=== PATIENT | female | born 1945 ===

== ENCOUNTER 2018-01-09 10:48 | Emergency (ER) | payer MEDICARE ==
[2018-01-09 11:01] VITALS: BMI 28.0
[2018-01-09 11:03] VITALS: TEMP 98
--- NOTE | 2018-01-09 12:04 | C.PDOC ---
History Of Present Illness Patient is a 72 y/o female who presents to the ED with her with a complaint of left upper quadrant pain since last night. Patient is currently asymptomatic in ED. Patient notes abdominal bloating. Per , patient has a Hx of dementia and received an unremarkable MRI of abdomen with or without contrast last month by Dr. Hall. No other physical complaints at this time. Time Seen by Provider: 01/09/18 11:37 Chief Complaint (Nursing): Abdominal Pain History Per: Patient, Family () History/Exam Limitations: no limitations Onset/Duration Of Symptoms: Hrs (last night) Current Symptoms Are (Timing): Still Present Location Of Pain/Discomfort: LUQ Associated Symptoms: Other (abdominal bloating) Recent travel outside of the [place]: No Past Medical History Reviewed: Historical Data, Nursing Documentation, Vital Signs Vital Signs: Last Vital Signs Temp 98.0 F 01/09/18 11:01 Pulse 71 01/09/18 11:01 Resp 17 01/09/18 11:01 BP 157/93 H 01/09/18 11:01 Pulse Ox 98 01/09/18 12:34 - Medical History PMH: Arthritis (KNEES), Dementia, Gall Bladder Disease, HTN Denies: Chronic Kidney Disease Surgical History: Appendectomy, Cholecystectomy, Tonsillectomy Family History: States: No Known Family Hx - Social History Hx Tobacco Use: No Hx Alcohol Use: No Hx Substance Use: No - Immunization History Hx Tetanus Toxoid Vaccination: No Hx Influenza Vaccination: No Hx Pneumococcal Vaccination: No Review Of Systems Gastrointestinal: Positive for: Other (left upper quadrant pain) Physical Exam - Physical Exam Appears: No Acute Distress, Other (bahraini-speaking and circumlocutious) Skin: Normal Color, Warm, Dry Head: Atraumatic, Normacephalic Oral Mucosa: Moist Chest: Symmetrical Cardiovascular: Rhythm Regular, No Murmur Respiratory: Normal Breath Sounds, No Rales, No Rhonchi, No Wheezing Gastrointestinal/Abdominal: No Tenderness, Distention (slightly distended), Other (obese; dull to percussion to right abdomen, tympanic to left abdomen) Neurological/Psych: Oriented x3, Normal Speech, Normal Cognition ED Course And Treatment - Laboratory Results Result Diagrams: 01/09/18 12:01 01/09/18 12:01 Lab Interpretation: Normal (ua neg.) O2 Sat by Pulse Oximetry: 98 - Radiology CXR: Interpreted by Me CXR Interpretation: Yes: No Acute Disease - Other Rad abd x 2 X-Ray: Interpreted by Me, Read By Radiologist (+FOS) Obtructive series X-Ray: Interpreted by Me Interpretation: IMPRESSION: Mild cardiomegaly. Moderate constipation. Cholecystectomy clips. Reevaluation Time: 12:32 Reassessment Condition: Improved Medical Decision Making Medical Decision Making: Blood work, obstructive series, and UA ordered. constipation mild elev lft's s/p GB normal MRI abd/pelvis last month argues against severe pathology with benign presentation Disposition Doctor Will See Patient In The: Office Counseled Patient/Family Regarding: Studies Performed, Diagnosis - Disposition Disposition: HOME/ ROUTINE Disposition Time: 12:33 Condition: GOOD Forms: [facility] (Thai) - Clinical Impression Clinical Impression: Colicky LUQ abdominal pain - Scribe Statement The provider has reviewed the documentation as recorded by the Scribe Yulissa Lawton All medical record entries made by the Scribe were at my direction and personally dictated by me. I have reviewed the chart and agree that the record accurately reflects my personal performance of the history, physical exam, medical decision making, and the department course for this patient. I have also personally directed, reviewed, and agree with the discharge instructions and disposition.
[2018-01-09 12:06] LABS: BASO # 0.1 K/uL (0.0-0.2); BASO % 1.2 % (0.0-2.0); EOS # 0.3 K/uL (0.0-0.7); EOS % 5.7 % (0.0-4.0); HEMOGLOBIN 16.2 g/dL (11.0-16.0); LYMPH % 33.8 % (20.0-40.0); MEAN CELL VOLUME 86.4 fL (81.0-99.0); MEAN CORPUSCULAR HGB CONC 34.8 g/dL (33.0-37.0); MEAN PLATELET VOLUME 8.7 fL (7.2-11.7); MONO # 0.4 K/uL (0.0-0.8); MONO % 7.2 % (0.0-10.0); NEUT # 3.1 K/uL (1.8-7.0); NEUT % 52.1 % (50.0-75.0); NRBC % 0.1 % (0.0-2.0); RBC 5.4 Mil/uL (3.80-5.20); RED CELL DISTRIBUTION WIDTH 13.1 % (11.5-14.5)
[2018-01-09 12:19] LABS: ALB/GLOB RATIO 1.2 (1.0-2.1); ALBUMIN 3.9 g/dL (3.5-5.0); ALT/SGPT 60 U/L (9-52); AST/SGOT 48 U/L (14-36); BLOOD UREA NITROGEN 16 mg/dL (7-17); CALCIUM 8.7 mg/dl (8.6-10.4); GFR AFRICAN-AMERICAN > 60; GFR NON-AFRICAN AMERICAN > 60; LIPASE 40 U/L (23-300)
--- NOTE | 2018-01-09 12:21 | RAD ---
PROCEDURE: Radiographs of the chest and abdomen (obstructive series) HISTORY: abd pain COMPARISON: None. TECHNIQUE: AP radiograph of the chest, with upright and supine radiographs of the abdomen. FINDINGS: CHEST: Mild cardiomegaly. Prominent position markings may be chronic. No focal consolidation, significant pleural effusion, or definite pneumothorax identified. ABDOMEN AND PELVIS: Nonobstructive bowel gas pattern. No definite free air. Moderate constipation. Pelvic calcifications, likely phleboliths. Cholecystectomy clips. Mild degenerative changes. IMPRESSION: Mild cardiomegaly. Moderate constipation. Cholecystectomy clips.
[2018-01-09 12:24] LABS: SQUAMOUS EPITHIAL 4 /hpf (0-5); URINE BACTERIA MOD (<OCC); URINE BILIRUBIN NEGATIVE (NEGATIVE); URINE BLOOD NEGATIVE (NEGATIVE); URINE CLARITY Hazy (Clear); URINE COLOR Yellow (YELLOW); URINE GLUCOSE (UA) NORMAL (Normal); URINE LEUKOCYTE ESTERASE 1+ Leu/uL (Negative); URINE PROTEIN NEGATIVE (NEGATIVE); URINE UROBILINOGEN NORMAL mg/dL (0.2-1.0)
[2018-01-09 12:47] VITALS: BP 146/84; PULSE 66; RESP 19; O2SAT 96
== END 2018-01-09 12:48 | disposition home or self-care (01) ==
LOC: C.ER 10:48
DX: R10.12 Left upper quadrant pain (principal); R10.84 Generalized abdominal pain; I10 Essential (primary) hypertension

== ENCOUNTER 2018-10-15 11:04 | Emergency (ER) | payer MEDICARE ==
[2018-10-15 11:09] VITALS: BMI 28.7
--- NOTE | 2018-10-15 11:54 | C.PDOC ---
History Of Present Illness 73 y/o female presents to the ED complaining of pain to the RUQ and right flank for 2 days. Pain is described as intermittent, and most prominent in the RUQ area. States pain feels like its shooting to my back. No associated nausea, vomiting, fever, chills, or diarrhea. Pain worsens with movement. She denies pain at present. Of note patient is s/p appendectomy, cholecystectomy, and hysterectomy. Patient had negative MRI abdomen in Dec 2017. Time Seen by Provider: 10/15/18 11:51 Chief Complaint (Nursing): Abdominal Pain History Per: Patient History/Exam Limitations: no limitations Onset/Duration Of Symptoms: Intermittent Episodes Current Symptoms Are (Timing): Gone Location Of Pain/Discomfort: RUQ Radiation Of Pain To:: Flank Quality Of Discomfort: "Pain" Exacerbating Factors: Movement Past Medical History Reviewed: Historical Data, Nursing Documentation, Vital Signs Vital Signs: Last Vital Signs Temp 98.5 F 10/15/18 11:08 Pulse 76 10/15/18 11:08 Resp 18 10/15/18 11:08 BP 132/80 10/15/18 11:08 Pulse Ox 98 10/15/18 11:08 - Medical History PMH: Arthritis (KNEES), Dementia, Gall Bladder Disease, HTN Denies: Chronic Kidney Disease Surgical History: Appendectomy, Cholecystectomy, Tonsillectomy Other Surgeries: Hysterectomy Family History: States: Unknown Family Hx - Social History Hx Tobacco Use: No Hx Alcohol Use: No Hx Substance Use: No - Immunization History Hx Tetanus Toxoid Vaccination: No Hx Influenza Vaccination: No Hx Pneumococcal Vaccination: No Review Of Systems Except As Marked, All Systems Reviewed And Found Negative. Constitutional: Negative for: Fever, Chills Cardiovascular: Negative for: Chest Pain Respiratory: Negative for: Shortness of Breath Gastrointestinal: Positive for: Abdominal Pain (RUQ). Negative for: Nausea, Vomiting, Diarrhea Musculoskeletal: Positive for: Other (Right flank pain) Neurological: Negative for: Weakness, Numbness Physical Exam - Physical Exam Appears: Non-toxic, No Acute Distress Skin: Normal Color, Warm, Dry Head: Atraumatic, Normacephalic Eye(s): bilateral: Normal Inspection, PERRL, EOMI Oral Mucosa: Moist Neck: Normal ROM Chest: Symmetrical Cardiovascular: Rhythm Regular, No Murmur Respiratory: Normal Breath Sounds, No Accessory Muscle Use, Other (NARD) Gastrointestinal/Abdominal: Soft, No Tenderness, No Distention, No Guarding, No Rebound Back: No CVA Tenderness, No Vertebral Tenderness Extremity: Bilateral: Atraumatic, Normal Color And Temperature Neurological/Psych: Oriented x3, Normal Speech ED Course And Treatment - Laboratory Results Result Diagrams: 10/15/18 12:27 10/15/18 12:27 O2 Sat by Pulse Oximetry: 98 (RA) Pulse Ox Interpretation: Normal - CT Scan/US CT Abd/Pelvis Other Rad Studies (CT/US): Read By Radiologist, Radiology Report Reviewed CT/US Interpretation: Accession No. : [id number]. Patient Name / ID : MIRI TREVIZO / [id number]. Exam Date : 10/15/2018 13:48:49 ( Approved ). Study Comment : Sex / Age : F / 73Y. Creator : Lauren Ruiz. Dictator : Anabel Barrera MD. Weekday Babysitter : [employer] Van Driver : Anabel Barrera MD. Approver2 : Report Date : 10/15/2018 13:57:05. My Comment : . Date of service: 10/15/2018. PROCEDURE: CT Abdomen and Pelvis with contrast. HISTORY: abd pain RUQ/RFLANK/MIDBACK. COMPARISON: Abdominal ultrasound performed 10/13/17, MRI of the abdomen without and with IV contrast performed 12/16/17, CT abdomen and pelvis without contrast performed 11/23/15. TECHNIQUE: Contrast dose: 100 mL Visipaque IV. Radiation dose: Total exam DLP = 561.3 mGy-cm. This CT exam was performed using one or more of the following dose reduction techniques: Automated exposure control, adjustment of the mA and/or kV according to patient size, and/or use of iterative reconstruction technique. FINDINGS: LOWER THORAX: Mild bibasilar atelectasis. No visible pleural effusion or pneumothorax. Small hiatal hernia/distal esophageal wall thickening. LIVER: Hypoattenuation of the liver compatible with hepatic steatosis. GALLBLADDER AND BILE DUCTS: Cholecystectomy clips. PANCREAS: Fatty atrophy. SPLEEN: Unremarkable. ADRENALS: Unremarkable. KIDNEYS AND URETERS: The kidneys enhance symmetrically. No hydronephrosis or obstructing calculus identified. VASCULATURE: No aortic aneurysm. Atherosclerotic calcifications/mural plaque present. BOWEL: Stomach is nondistended. Lack of oral contrast limits evaluation for bowel pathology. Bowel loops appear within normal limits of caliber without evidence of obstruction. Diverticulosis without CT evidence of acute diverticulitis. APPENDIX: The appendix is not identified. No secondary signs of acute appendicitis. PERITONEUM: No significant free fluid. No definite free air. LYMPH NODES: No bulky adenopathy identified. BLADDER: Under distention of the urinary bladder limits evaluation. Mild inflammatory changes noted at the anterior uterus bladder; correlate with urinalysis as cystitis cannot be excluded. REPRODUCTIVE: Uterus is absent consistent with hysterectomy. BONES: Degenerative changes. OTHER FINDINGS: None. IMPRESSION: Under distention of the urinary bladder limits evaluation. Mild inflammatory changes noted at the anterior uterus bladder; correlate with urinalysis as cystitis cannot be excluded. Hypoattenuation of the liver compatible with hepatic steatosis. Additional findings as above. Medical Decision Making Medical Decision Making: Plan: --Blood work --Urinalysis --Morphine 2 mg IV --Zofran 4 mg IV --CT Abd/Pelvis with IV contrast Disposition Counseled Patient/Family Regarding: Studies Performed, Diagnosis, Need For Followup, Rx Given - Disposition Referrals: YOUR,PMD [Other] Disposition: HOME/ ROUTINE Disposition Time: 14:27 Condition: IMPROVED Prescriptions: Nitrofurantoin Macrocrystals [Macrobid] 1 cap PO BID #14 cap Phenazopyridine HCl [Pyridium] 200 mg PO BID #6 tablet Instructions: Urinary Tract Infection, Adult (DC) Forms: [employer] (Croatian) Print Language: ANGOLAN - Clinical Impression Clinical Impression: Abdominal pain, UTI (urinary tract infection) - Scribe Statement The provider has reviewed the documentation as recorded by the Melvinibfarhana Dinh Provider Attestation: All medical record entries made by the Scribe were at my direction and persona lly dictated by me. I have reviewed the chart and agree that the record accurately reflects my personal performance of the history, physical exam, medical decision making, and the department course for this patient. I have also personally directed, reviewed, and agree with the discharge instructions and disposition.
[2018-10-15 12:37] LABS: BASO # 0.1 K/uL (0.0-0.2); BASO % 1.3 % (0.0-2.0); EOS # 0.3 K/uL (0.0-0.7); EOS % 6.8 % (0.0-4.0); HEMOGLOBIN 14.4 g/dL (11.0-16.0); LYMPH # 1.5 K/uL (1.0-4.3); LYMPH % 36.7 % (20.0-40.0); MEAN CORPUSCULAR HEMOGLOBIN 30.3 pg (27.0-31.0); MEAN CORPUSCULAR HGB CONC 34.2 g/dL (33.0-37.0); MEAN PLATELET VOLUME 8.5 fL (7.2-11.7); MONO # 0.4 K/uL (0.0-0.8); MONO % 9.5 % (0.0-10.0); NEUT # 1.9 K/uL (1.8-7.0); NEUT % 45.7 % (50.0-75.0); RBC 4.76 Mil/uL (3.80-5.20); RED CELL DISTRIBUTION WIDTH 12.8 % (11.5-14.5); WHITE BLOOD COUNT 4.1 K/uL (4.8-10.8)
[2018-10-15 12:41] LABS: MEAN CELL VOLUME 88.6 fL (81.0-99.0)
[2018-10-15 12:47] LABS: SQUAMOUS EPITHIAL 8 /hpf (0-5); URINE BACTERIA MANY (<OCC); URINE BILIRUBIN NEGATIVE (NEGATIVE); URINE BLOOD NEGATIVE (NEGATIVE); URINE CLARITY Hazy (Clear); URINE COLOR Yellow (YELLOW); URINE GLUCOSE (UA) NORMAL (Normal); URINE LEUKOCYTE ESTERASE 3+ Leu/uL (Negative); URINE PROTEIN NEGATIVE (NEGATIVE); URINE UROBILINOGEN NORMAL mg/dL (0.2-1.0)
[2018-10-15] MEDS ORDERED: Iodixanol 320 MG/ML 100 ML BOTTLE IV ONE (12:57)
[2018-10-15 13:02] LABS: ALB/GLOB RATIO 1.2 (1.0-2.1); ALBUMIN 3.7 g/dL (3.5-5.0); ALT/SGPT 53 U/L (9-52); AST/SGOT 64 U/L (14-36); BLOOD UREA NITROGEN 21 mg/dL (7-17); CALCIUM 8.7 mg/dl (8.6-10.4); GFR NON-AFRICAN AMERICAN > 60; LIPASE 38 U/L (23-300)
--- NOTE | 2018-10-15 14:13 | CT ---
Date of service: 10/15/2018 PROCEDURE: CT Abdomen and Pelvis with contrast HISTORY: abd pain RUQ/RFLANK/MIDBACK COMPARISON: Abdominal ultrasound performed 10/13/17, MRI of the abdomen without and with IV contrast performed 12/16/17, CT abdomen and pelvis without contrast performed 11/23/15 TECHNIQUE: Contrast dose: 100 mL Visipaque IV Radiation dose: Total exam DLP = 561.3 mGy-cm. This CT exam was performed using one or more of the following dose reduction techniques: Automated exposure control, adjustment of the mA and/or kV according to patient size, and/or use of iterative reconstruction technique. FINDINGS: LOWER THORAX: Mild bibasilar atelectasis. No visible pleural effusion or pneumothorax. Small hiatal hernia/distal esophageal wall thickening. LIVER: Hypoattenuation of the liver compatible with hepatic steatosis. GALLBLADDER AND BILE DUCTS: Cholecystectomy clips. PANCREAS: Fatty atrophy. SPLEEN: Unremarkable. ADRENALS: Unremarkable. KIDNEYS AND URETERS: The kidneys enhance symmetrically. No hydronephrosis or obstructing calculus identified. VASCULATURE: No aortic aneurysm. Atherosclerotic calcifications/mural plaque present. BOWEL: Stomach is nondistended. Lack of oral contrast limits evaluation for bowel pathology. Bowel loops appear within normal limits of caliber without evidence of obstruction. Diverticulosis without CT evidence of acute diverticulitis. APPENDIX: The appendix is not identified. No secondary signs of acute appendicitis. PERITONEUM: No significant free fluid. No definite free air. LYMPH NODES: No bulky adenopathy identified. BLADDER: Under distention of the urinary bladder limits evaluation. Mild inflammatory changes noted at the anterior uterus bladder; correlate with urinalysis as cystitis cannot be excluded. REPRODUCTIVE: Uterus is absent consistent with hysterectomy. BONES: Degenerative changes. OTHER FINDINGS: None. IMPRESSION: Under distention of the urinary bladder limits evaluation. Mild inflammatory changes noted at the anterior uterus bladder; correlate with urinalysis as cystitis cannot be excluded. Hypoattenuation of the liver compatible with hepatic steatosis. Additional findings as above.
[2018-10-15 14:36] VITALS: BP 128/75; PULSE 56; RESP 18; TEMP 97.7; O2SAT 96
== END 2018-10-15 14:37 | disposition home or self-care (01) ==
LOC: C.ER 11:04
DX: N39.0 Urinary tract infection, site not specified (principal); R10.11 Right upper quadrant pain
CPT/HCPCS: 74177; 80053; 81001; 83690; 85025; 87086; 96374; 96375; 99284; J2270; J2405; Q9967